=== PATIENT | male | born 1965 | race Caucasian/White ===

== ENCOUNTER 2018-06-02 17:34 | Emergency (ER) | payer BC ==
--- OUTSIDE RECORDS SUMMARY | 2018-06-02 17:42 | XMS REPORT ---
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 Payers Type Date Identification Numbers Payment Provider Subscriber Health Maintenance Policy Number: [id number] [facility] Bonnie Gutierrez Organization (HMO) Plan Group Number: [id number] [address] PayID: [id number] [place] [address] Problems Date Description Provider Status Onset: 10/22/2005 Pneumonia Lakisha Ponce MD Active Onset: 05/12/2006 Dysfunction of eustachian tube Lakisha Ponce MD Active Onset: 05/12/2006 Serosanguineous chronic otitis media Lakisha Ponce MD Active Onset: 08/24/2013 Open wound of finger without complication Lakisha Ponce MD Active Family History Date Family Member(s) Problem(s) Comments Father Hypercholesterolemia Father Stroke Father Seizures Father Heart Disease VALVULAR POSSIBLE HISTORY OF RHEUMATIC FEVER. Father Arthritis Father COPD Mother Diabetes, Adult ONSET AGE 42. diet controlled Mother Ulcers Mother Allergies Mother Rheumatoid Arthritis Mother Spinal Stenosis Number of Children 4 A&W. oldest has allergies. : (age First Sister due to Angiosarcoma 25 Years) Social History Type Date Description Comments Marital Status Diet portion control Occupation Tech Support For [employer] Cigarette Use Never Smoked Cigarettes ETOH Use Occasionally consumes alcohol 3beers/week Recreational Drug Use Denies Drug Use Currently Active Patient is currently sexually active Allergies, Adverse Reactions, Alerts Date Description Reaction Status Severity Comments 10/22/2005 NKDA active Medications Medication Date Status Form Strength Qnty SIG Indications Ordering Provider Neomycin/Polymyx 08/29/ Active Suspension 3.5-90869 1bott 4 drops H61.23 [place], in/Hydrocortison 2018 -1 two times dorothy Elder (Otic) a day for PA 2 weeks before visit Ventolin HFA 04/05/ Active Aerosol 108(90Bas 16gm 2 puffs J45.40 Andreas 2017 e) every 4 MD Gaudencio mcg/Act hours as needed Triamcinolone 04/05/ Active Ointment 0.5% 30gm apply to L20.89 Andreas Acetonide 2018 affected MD Gaudencio areas twice a day Montelukast 10/19/ Active Tablets 10mg 90tab 1 by mouth J30.1 Andreas Sodium 2018 s every day MD Gaudencio Hytone 10/19/ Active Cream 2.5% 60gm Apply Andreas2017 Sparingly MD Gaudencio bid prn Hydrocortisone 10/19/ Active Cream 2.5% 60gm apply Andreas, 2017 twice a MD Gaudencio day to affected areas Simvastatin 08/04/ Active Tablets 20mg 90tab 1 by mouth Andreas, 2007 s every day. MD Gaudencio Aspirin 06/21/ Active Chewtabs 81mg 1 PO qd 530.11 Andreas, 2005 MD Gaudencio Sulfamethoxazole 12/13/ Hx Tablets 800-160mg 20tab 1 by mouth L03.90 Andreas /Trimethoprim DS 2018 - s twice a MD Gaudencio 05/08/ 2018 Amoxicillin/Clav 01/11/ Hx Tablets 875-125mg 14tab 1 by mouth L73.9 montserrat Johnsanate 2016 - s twice a MD Gaudencio Potassium 2016 Cetirizine HCL 10/01/ Hx Tablets 10mg as Andreas 2015 - directed MD Gaudencio 2016 Terbinafine HCL 10/01/ Hx Tablets 250mg 84tab 1 by mouth Andreas 2015 - s every day MD Gaudencio 2016 Fluocinonide 08/22/ Hx Cream 0.05% 60gm apply to Andreas, 2013 - affected MD Gaudencio 10/01/ area 2015 sparingly bid prn Prednisone 12/13/ Hx Tablets 20mg QS 3 po qd x 493.00 Andreas 2013 - 3 days, 2 MD Gaudencio 08/22/ qd x 3 2013 days; 1 qd x 3 days then 1/2 tab qd x 3 days then stop Ventolin HFA 12/13/ Hx Aerosol 108(90Bas 1unit 2 puffs 493.00 Andreas, 2013 - e) s q4h prn MD Gaudencio 08/22/ mcg/Act 2013 Nasonex 09/23/ Hx Suspension 50mcg/Act 1unit 2 Sprays 477.0 Andreas 2013 - s Each Oc MD Gaudencio Initially 2013 Twice A Day Until SXS Relieved Then 2 Sprays qd. Cephalexin 08/24/ Hx Capsules 500mg 20cap 2 po bid 883.0 Kris 2012 - s MD Lakisha 2013 Prednisone 02/18/ Hx Tablets 5mg 36tab 8 tabs day 691.8 Andreas 2012 - s 1 then MD Gaudencio 08/22/ decrease 2013 by 1 tab per day until all are gone. Fluocinonide 04/30/ Hx Cream 0.05% 60gm apply to Andreas 2011 - affected MD Gaudencio 08/22/ area 2013 sparingly bid prn Nystatin 10/27/ Hx Cream [id number] 30gm apply bid 112.9 Andreas 2010 - t/GM to MD Gaudencio 01/12/ affected 2010 areas. Durable Medical 10/27/ Hx 1unit tennis 726.32 Andreas, Goods 2010 - s elbow MD Gaudencio 01/12/ velcro 2010 strap Dexamethasone 01/26/ Hx Solution 0.1% 5ml 1 gtt ou 372.30 Andreas, Sodium Phosphate 2009 - tid MD Gaudencio 2010 Nabumetone 11/23/ Hx Tablets 500mg 30tab 1 po bid 847.0 Andreas 2009 - s MD Gaudencio 2010 Skelaxin 11/23/ Hx Tablets 800mg 20tab one tab 847.0 Andreas 2009 - s qHS MD Gaudencio 2010 Cortisporin 11/16/ Hx Solution 3.5-36313 1bott 3 gtt RT 380.10 Andreas 2009 - -1 le ear tid x MD Gaudencio 7 days 2009 Pataday 07/21/ Hx Solution 0.2% 1unit 1 gt o.u. 372.05 Andreas 2008 - s qd MD Gaudencio 2009 Omeprazole 05/08/ Hx Capsules DR 40mg 30cap 1 po qd 530.11 Andreas 2008 - s MD Gaudencio 2009 Singulair 01/16/ Hx Tablets 10mg 90tab one po q 477.0 Andreas 2008 - s hs MD Gaudencio 2010 Azithromycin 09/29/ Hx Tablets 250mg 6tabs 2 PO qd X 466.0 Andreas 2008 - 1 Day Then MD Gaudencio PO qd X 2009 4 Days Augmentin 08/01/ Hx Tablets 875mg 20tab 1 PO bid 461.0 Andreas 2007 - s MD Gaudencio 2009 Nasonex 10/26/ Hx Suspension 50mcg/Act 1unit 2 Sprays 477.0 Andreas2007 - s Each Oc Ratliff MD 2009 Twice A Day Until SXS Relieved Then 2 Sprays qd. Simvastatin 11/24/ Hx Tablets 10mg 30tab 1 PO qd Andreas 2006 - s Due For MD Gaudencio 08/04/ 2007 Blood Work DEBRA. Hytone 06/21/ Cream 2.5% 60gm Apply Andreas 2005 - Sparingly MD Gaudencio 01/26/ bid prn 2009 Entex [place] 05/11/ Hx Capsules 400mg;30 1 po bid 382.00 Andreas 2005 - mg MD Gaudencio 2009 Amoxicillin 05/06/ Hx Tablets 875mg 20tab 1 PO bid 381.01 Andreas 2005 - s MD Gaudencio 2005 Entex [place] 05/06/ Hx Tablets 600mg;30 30tab 1 po bid 382.00 Andreas 2005 - mg jesika Ratliff MD 2005 Auralgan 05/06/ Hx Solution 5.4%;1.4 1BTL 2-3 ML 381.01 Andreas 2005 - % Into MD Gaudencio 2005 Ear Q4H prn Entex [place] 01/06/ Hx Tablets 600mg;30 45tab 1 PO bid 486 Andreas 2005 - mg s MD Gaudencio 2005 Ketek 10/22/ Hx Tablets 400mg 20tab 2 po qd 486 Andreas 2005 - s MD Gaudencio 2005 Albuterol 10/22/ Hx Aerosol 90mcg/Dos 1unit 2 puffs 486 Kris, Inhalation 2006 - e s q4h prn MD Lakisha 06/21/ cough, 2005 wheezing or SOB Levaquin 10/05/ Hx Tablets 500mg 10tab 1 po qd 486 Criselda Johns MD 2005 Robitussin A-c 10/05/ Hx Syrup 100mg;10m 120ml 1-2 tsp 486 Criselda Johns - g/5ML q4h prn MD Gaudencio 2005 Medications Administered in Office Medication Date Status Form Strength Qnty SIG Indications Ordering Provider PPD Administered Injection Aristeo Johns MD Immunizations CPT Code Status Date Vaccine Lot # [id number] Given 10/01/2015 Influenza Vac, 3 Yrs & Older, [id number] Quadrivalent, [place], [place] Use [address] Given 10/01/2015 Prevnar 13 Pneumococal Conjugate [id number] Vaccine Q2038 Given 06/27/2014 Fluzone Trivalent Immunization [id number] Q2038 Given 07/18/2013 Fluzone Trivalent Immunization [id number] Q2038 Given 06/24/2011 Fluzone Trivalent Immunization [id number] 42917 Given 01/26/2010 Influenza Virus Vaccine Pandemic [id number] Formulation - [id number] 79002 Given 01/26/2010 Administration Swine Flu Vaccine [id number] 20765 Given 12/28/2007 Tdap (Adacel) Ages 7 And Above Only [id number] 95204 Given 08/11/2006 Pneumococcal 23 Immunization Adult Or [id number] Immunosuppressed Patient 07004 Given 08/02/2006 Hepatitis B Vaccine Adult Dosage 70570 Given 08/02/2006 Hepatitis B Vaccine Adult Dosage [id number] 44285 Given 08/02/2006 Afluria Or Fluvirin Flu Vac Intramuscular 58495 Given 08/02/2006 Afluria Or Fluvirin Flu Vac Intramuscular 20462 Given 08/02/2006 Afluria Or Fluvirin Flu Vac [id number], EX 03/10/07 Intramuscular 64905 Given 06/21/2006 Hepatitis B Vaccine Adult Dosage [id number] 66090 Refused 10/03/2017 Afluria Or Fluvirin Flu Vac Intramuscular Vital Signs Date Vital Result Comment 05/09/2018 Body Temperature 97.7 F Weight 257.00 lb Heart Rate 72 /min BP Systolic 120 mmHg BP Diastolic 76 mmHg Height 74 inches 6'2" O2 % BldC Oximetry 99 % BMI (Body Mass Index) 33.0 kg/m2 04/05/2018 Weight 257.00 lb BP Systolic 138 mmHg BP Diastolic 80 mmHg Height 74 inches 6'2" BMI (Body Mass Index) 33.0 kg/m2 12/14/2017 Weight 256.00 lb BP Systolic 120 mmHg BP Diastolic 84 mmHg Height 74 inches 6'2" BMI (Body Mass Index) 32.9 kg/m2 12/13/2017 Body Temperature 98.8 F Weight 256.00 lb BP Systolic 118 mmHg BP Diastolic 76 mmHg Height 74 inches 6'2" BMI (Body Mass Index) 32.9 kg/m2 10/19/2017 Body Temperature 98.8 F Weight 254.00 lb Heart Rate 79 /min BP Systolic 122 mmHg BP Diastolic 84 mmHg Height 74 inches 6'2" O2 % BldC Oximetry 97 % BMI (Body Mass Index) 32.6 kg/m2 Urine Dipstick - Blood NEGATIVE Urine Dipstick - Protein NEGATIVE Urine Dipstick - Glucose NEGATIVE Urine Dipstick - Leukocytes NEGATIVE 01/12/2016 Body Temperature 99.0 F Weight 263.00 lb BP Systolic 158 mmHg BP Diastolic 90 mmHg Height 74 inches 6'2" BMI (Body Mass Index) 33.8 kg/m2 10/01/2015 Body Temperature 98.2 F Weight 266.00 lb Heart Rate 76 /min BP Systolic 130 mmHg BP Diastolic 84 mmHg Height 72 inches 6'0" BMI (Body Mass Index) 36.1 kg/m2 Urine Dipstick - Blood NEGATIVE Urine Dipstick - Protein NEGATIVE Urine Dipstick - Glucose NEGATIVE Urine Dipstick - Leukocytes NEGATIVE Left ear audiology results 20 db Right ear audiology results 20 db 08/22/2014 Body Temperature 98.1 F Weight 241.00 lb BP Systolic 112 mmHg BP Diastolic 72 mmHg 12/13/2013 Body Temperature 98.0 F Weight 241.00 lb BP Systolic 124 mmHg BP Diastolic 76 mmHg O2 Saturation Level with Exercise 97 % 09/23/2013 Body Temperature 98.4 F Weight 241.00 lb BP Systolic 122 mmHg BP Diastolic 78 mmHg Height 74.25 inches 6'2.25" BMI (Body Mass Index) 30.7 kg/m2 Urine Dipstick - Blood NEGATIVE Leuks Neg Urine Dipstick - Protein NEGATIVE Urine Dipstick - Glucose NEGATIVE 02/18/2013 Body Temperature 97.8 F Weight 256.00 lb BP Systolic 148 mmHg BP Diastolic 90 mmHg 04/30/2012 Body Temperature 97.3 F Weight 232.00 lb Heart Rate 65 /min BP Systolic 128 mmHg BP Diastolic 79 mmHg 06/24/2011 Weight 244.00 lb BP Systolic 122 mmHg BP Diastolic 76 mmHg 01/12/2011 Weight 237.00 lb Heart Rate 76 /min BP Systolic 120 mmHg BP Diastolic 78 mmHg Height 73.5 inches 6'1.50" BMI (Body Mass Index) 30.8 kg/m2 Urine Dipstick - Blood NEGATIVE Urine Dipstick - Protein NEGATIVE Urine Dipstick - Glucose NEGATIVE Right Visual Acuity Distance 20/30 Hearing WNL Bilat Left Visual Acuity Distance 20/20 10/27/2010 Weight 240.00 lb BP Systolic 124 mmHg BP Diastolic 78 mmHg 01/26/2010 Body Temperature 97.3 F Weight 228.00 lb Heart Rate 70 /min BP Systolic 124 mmHg BP Diastolic 68 mmHg Height 74.25 inches 6'2.25" BMI (Body Mass Index) 29.1 kg/m2 Urine Dipstick - Blood NEGATIVE Urine Dipstick - Protein NEGATIVE Urine Dipstick - Glucose NEGATIVE Right Visual Acuity Distance 20/30 Left Visual Acuity Distance 20/20 11/23/2009 Weight 240.00 lb BP Systolic 110 mmHg BP Diastolic 80 mmHg 11/16/2009 Body Temperature 100.0 F Weight 239.00 lb BP Systolic 140 mmHg BP Diastolic 80 mmHg 07/21/2009 Weight 232.00 lb BP Systolic 118 mmHg BP Diastolic 64 mmHg 06/26/2009 Body Temperature 98.7 F Weight 233.00 lb BP Systolic 120 mmHg BP Diastolic 72 mmHg 01/16/2009 Body Temperature 98.4 F Weight 234.00 lb BP Systolic 128 mmHg BP Diastolic 68 mmHg Height 74 inches 6'2" BMI (Body Mass Index) 30.0 kg/m2 09/29/2008 Body Temperature 97.8 F Weight 235.00 lb BP Systolic 120 mmHg BP Diastolic 70 mmHg Height 74 inches 6'2" BMI (Body Mass Index) 30.2 kg/m2 08/01/2008 Body Temperature 97.2 F Weight 225.00 lb Heart Rate 76 /min BP Systolic 128 mmHg BP Diastolic 78 mmHg Height 74 inches 6'2" BMI (Body Mass Index) 28.9 kg/m2 12/28/2007 Weight 226.00 lb Heart Rate 56 /min BP Systolic 130 mmHg BP Diastolic 86 mmHg Height 74 inches 6'2" BMI (Body Mass Index) 29.0 kg/m2 Urine Dipstick - Blood NEGATIVE Urine Dipstick - Protein NEGATIVE Urine Dipstick - Glucose NEGATIVE Right Visual Acuity Distance 20/20 Audio BWNL Left Visual Acuity Distance 20/20 10/26/2007 Weight 222.00 lb BP Systolic 124 mmHg BP Diastolic 87 mmHg Height 74 inches 6'2" BMI (Body Mass Index) 28.5 kg/m2 04/21/2007 Weight 216.00 lb Heart Rate 64 /min BP Systolic 134 mmHg BP Diastolic 86 mmHg Height 74 inches 6'2" BMI (Body Mass Index) 27.7 kg/m2 11/24/2006 Weight 220.00 lb Heart Rate 64 /min BP Systolic 132 mmHg BP Diastolic 67 mmHg Height 74 inches 6'2" BMI (Body Mass Index) 28.2 kg/m2 08/11/2006 Body Temperature 98.9 F Weight 225.00 lb Heart Rate 78 /min BP Systolic 126 mmHg BP Diastolic 79 mmHg Height 74 inches 6'2" BMI (Body Mass Index) 28.9 kg/m2 06/21/2006 Body Temperature 97.3 F Weight 225.00 lb Heart Rate 80 /min BP Systolic 127 mmHg BP Diastolic 76 mmHg Height 74 inches 6'2" BMI (Body Mass Index) 28.9 kg/m2 Urine Dipstick - Blood NEGATIVE Urine Dipstick - Protein NEGATIVE Urine Dipstick - Glucose NEGATIVE Right Visual Acuity Distance 20/20 Left Visual Acuity Distance 20/20 05/12/2006 Body Temperature 97.1 F Weight 223.00 lb Heart Rate 64 /min BP Systolic 140 mmHg BP Diastolic 80 mmHg Height 74 inches 6'2" BMI (Body Mass Index) 28.6 kg/m2 05/06/2006 Body Temperature 98.0 F Weight 224.00 lb BP Systolic 110 mmHg BP Diastolic 72 mmHg Height 74 inches 6'2" BMI (Body Mass Index) 28.8 kg/m2 01/06/2006 Weight 228.00 lb Heart Rate 59 /min BP Systolic 131 mmHg BP Diastolic 94 mmHg Height 74 inches 6'2" BMI (Body Mass Index) 29.3 kg/m2 10/26/2005 BP Systolic 124 mmHg BP Diastolic 84 mmHg 10/22/2005 Body Temperature 98.2 F Weight 224.00 lb Heart Rate 90 /min BP Systolic 123 mmHg BP Diastolic 72 mmHg 10/12/2005 Body Temperature 98.7 F Weight 220.00 lb BP Systolic 118 mmHg BP Diastolic 80 mmHg 10/05/2005 Body Temperature 99.1 F Weight 223.00 lb Heart Rate 72 /min BP Systolic 131 mmHg BP Diastolic 90 mmHg O2 % BldC Oximetry 97 % Results Test Date Test Result H/L Range Note Lipid 04/05/2018 Cholesterol 166 mg/dL 50-199 1 Triglycerides 105 mg/dL 30-200 1 HDL 47 mg/dL 29-71 1, 2 Chol/ HDL Ratio 3.5 ratio Low 4.0-6.7 1 VLDL 21 mg/dL 2-29 1 LDL (Calc) 98 mg/dL 20-99 1, 3 Laboratory test finding 04/05/2018 TSH 7.07 uIU/mL High 0.35-4.94 1 Laboratory test finding 10/19/2017 TSH 4.62 uIU/mL 0.35-4.94 4 PSA 0.490 ng/mL 0.000-4.000 5 Lipid 10/04/2017 Cholesterol 174 mg/dL 50-199 6 Triglycerides 131 mg/dL 30-200 6 HDL 44 mg/dL 29-71 6, 7 Chol/ HDL Ratio 4.0 ratio 4.0-6.7 6 VLDL 26 mg/dL 2-29 6 LDL (Calc) 104 mg/dL High 20-99 6, 8 Laboratory test finding 10/04/2017 TSH 6.75 uIU/mL High 0.35-4.94 6 Comprehensive Met Panel-FCMG 10/04/2017 Sodium 140 mmol/L 135-146 6, 9 Potassium 4.4 mmol/L 3.5-5.2 6 Chloride# 106 mmol/L 97-110 6, 10 Carbon Dioxide 27 mmol/L 24-34 6 Glucose 107 mg/dL High 70-105 6 BUN 18 mg/dL 6-26 6 Creatinine 1.2 mg/dL 0.5-1.4 6 Calcium 9.6 mg/dL 8.5-10.2 6 Total Protein 7.2 g/dL 6.0-8.0 6 Albumin 4.3 g/dL 3.6-4.9 6 Globulin 2.9 g/dL 2.0-3.5 6 A/G Ratio 1.5 Ratio 1.0-2.2 6 Total Bilirubin 0.6 mg/dL 0.1-1.3 6 Alkaline Phosphatase 100 U/L 24-140 6 Alt 60 U/L High 3-42 6 Ast 29 U/L 8-42 6 Lary Egfr >60 >60 6, 11 Non Lary Egfr >60 >60 6, 12 Anion Gap 7 mmol/L 7-16 6, 13 CBC With Auto Diff 10/04/2017 WBC 6.8 K/uL 4.1-11.0 6 RBC 4.96 M/uL 4.60-6.10 6 Hemoglobin 14.9 gm/dL 13.5-18.0 6 Hematocrit 44.4 % 41.0-53.0 6 MCV 89.5 fL 80.0-97.0 6 MCH 29.9 pg 27.0-32.0 6 MCHC 33.4 g/dL 32.0-36.0 6 RDW 14.0 % 11.5-14.5 6 PLT Count 221 K/ul 140-400 6 MPV 9.3 FL 7.1-10.7 6 Neutrophil 43.5 % 35.0-75.0 6 Lymphocyte 40.9 % 16.0-52.0 6 Monocyte 9.9 % 2.0-10.0 6 Eosinophil 5.0 % 0.0-5.0 6 Basophil 0.7 % 0.0-4.0 6 Abs Neutrophils 3.0 K/uL 2.1-8.0 6 Abs Lymphocytes 2.8 K/uL 0.8-5.5 6 Abs Monocytes 0.7 K/uL 0.1-1.0 6 Abs Eosinophils 0.3 K/uL 0.0-0.5 6 Abs Basophils 0.0 K/uL 0.0-0.3 6 Hemoglobin A1c 10/04/2017 Hemoglobin A1c 5.5 % 4.1-5.9 6 Estimated Average Glucose Calc 111 mg/dL 71-140 6 Lipid 12/09/2016 Cholesterol 150 mg/dL 50-199 Triglycerides 76 mg/dL 30-200 HDL 44 mg/dL - 14 Chol/ HDL Ratio 3.4 ratio Low 4.0-6.7 VLDL 15 mg/dL 2-29 LDL (Calc) 90 mg/dL 20-99 15 Lipid Treatment 05/24/2016 Cholesterol 147 mg/dL 50-199 16 Triglycerides 140 mg/dL 30-200 16 HDL 42 mg/dL 16, 17 Chol/ HDL Ratio 3.5 ratio Low 4.0-6.7 16 VLDL 28 mg/dL 2-29 16 LDL (Calc) 77 mg/dL 20-99 16, 18 Alt 42 U/L 3-42 16 Ast 30 U/L 8-42 16 Laboratory test finding 01/12/2016 TSH 3.38 uIU/mL 0.35-4.94 16 Hepatic Panel (LFT) 01/12/2016 Total Protein 7.2 g/dL 6.0-8.0 16 Albumin 4.2 g/dL 3.6-4.9 16 Total Bilirubin 0.5 mg/dL 0.1-1.3 16 Direct Bilirubin 0.1 mg/dL 0.0-0.4 16 Alkaline Phosphatase 75 U/L 24-140 16 Alt 31 U/L 3-42 16 Ast 21 U/L 8-42 16 CBC With Auto Diff 01/12/2016 WBC 7.4 K/uL 4.1-11.0 16 RBC 5.02 M/uL 4.60-6.10 16 Hemoglobin 14.7 gm/dL 13.5-18.0 16 Hematocrit 45.5 % 41.0-53.0 16 MCV 90.6 fL 80.0-97.0 16 MCH 29.3 pg 27.0-32.0 16 MCHC 32.3 g/dL 32.0-36.0 16 RDW 13.9 % 11.5-14.5 16 PLT Count 230 K/ul 140-400 16 Neutrophil 59.8 % 35.0-75.0 16 Lymphocyte 30.7 % 16.0-52.0 16 Monocyte 6.6 % 2.0-10.0 16 Eosinophil 2.2 % 0.0-5.0 16 Basophil 0.7 % 0.0-4.0 16 Abs Neutrophils 4.4 K/uL 2.1-8.0 16 Abs Lymphocytes 2.3 K/uL 0.8-5.5 16 Abs Monocytes 0.5 K/uL 0.1-1.0 16 Abs Eosinophils 0.2 K/uL 0.0-0.5 16 Abs Basophils 0.1 K/uL 0.0-0.3 16 Basic (BMP) 01/12/2016 Sodium 140 mmol/L 134-142 16 Potassium 4.9 mmol/L 3.5-5.2 16 Chloride 106 mmol/L 97-109 16 Carbon Dioxide 28 mmol/L 24-34 16 Glucose 94 mg/dL 70-105 16 BUN 12 mg/dL - 16 Creatinine 1.1 mg/dL 0.5-1.4 16 Calcium 9.3 mg/dL 8.5-10.2 16 Anion Gap 11 mmol/L 6-14 16 Non Lary Egfr >60 >60 16, 19 Lary Egfr >60 >60 16, 20 Hepatic Panel (LFT) 11/19/2015 Total Protein 7.5 g/dL 6.0-8.0 16 Albumin 4.3 g/dL 3.6-4.9 16 Total Bilirubin 0.7 mg/dL 0.1-1.3 16 Direct Bilirubin 0.1 mg/dL 0.0-0.4 16 Alkaline Phosphatase 79 U/L 24-140 16 Alt 43 U/L High 16 Ast 28 U/L 16 Lipid Treatment 08/31/2015 Cholesterol 141 mg/dL 50-199 16 Triglycerides 118 mg/dL 30-200 16 HDL 38 mg/dL 16, 21 Chol/ HDL Ratio 3.7 ratio Low 4.0-6.7 16 VLDL 24 mg/dL 16 LDL (Calc) 79 mg/dL 16, 22 Alt 39 U/L 16 Ast 28 U/L 16 Lipid Treatment 03/17/2015 Cholesterol 142 mg/dL 50-199 23 Triglycerides 97 mg/dL 30-200 23 HDL 40 mg/dL 23, 24 Chol/ HDL Ratio 3.6 ratio Low 4.0-6.7 23 VLDL 19 mg/dL 23 LDL (Calc) 83 mg/dL 23, 25 Alt 43 U/L High 23 Ast 26 U/L 23 Lipid 08/22/2014 Cholesterol 142 mg/dL 50-199 26 Triglycerides 130 mg/dL 30-200 26 HDL 36 mg/dL 26, 27 Chol/ HDL Ratio 3.9 ratio Low 4.0-6.7 26 VLDL 26 mg/dL 26 LDL (Calc) 80 mg/dL 99 26, 28 Lipid 02/25/2014 Cholesterol 145 mg/dL 50-199 29 Triglycerides 87 mg/dL 30-200 29 HDL 44 mg/dL 29, 30 Chol/ HDL Ratio 3.3 ratio Low 4.0-6.7 29 VLDL 17 mg/dL 2-29 29 LDL (Calc) 84 mg/dL 20-99 29, 31 CBC With Auto Diff 09/23/2013 WBC 8.8 K/uL 4.1-11.0 32 RBC 4.84 M/uL 4.60-6.10 32 Hemoglobin 14.8 gm/dL 13.5-18.0 32 Hematocrit 43.1 % 41.0-53.0 32 MCV 89.0 fL 80.0-97.0 32 MCH 30.5 pg 27.0-32.0 32 MCHC 34.2 g/dL 32.0-36.0 32 RDW 13.9 % 11.5-14.5 32 PLT Count 202 K/ul 140-400 32 Neutrophil 61.8 % 35.0-75.0 32 Lymphocyte 27.5 % 16.0-52.0 32 Monocyte 7.5 % 2.0-10.0 32 Eosinophil 2.6 % 0.0-5.0 32 Basophil 0.6 % 0.0-4.0 32 Abs Neutrophils 5.4 K/uL 2.1-8.0 32 Abs Lymphocytes 2.4 K/uL 0.8-5.5 32 Abmon 0.7 K/uL 0.1-1.0 32 Abs Eosinophils 0.2 K/uL 0.0-0.5 32 Abs Basophils 0.1 K/uL 0.0-0.3 32 Comprehensive Metabolic (CMP) 09/23/2013 Sodium 138 mmol/L 134-142 32 Potassium 4.2 mmol/L 3.5-5.2 32 Chloride 104 mmol/L 97-109 32 Carbon Dioxide 28 mmol/L 24-34 32 Glucose 86 mg/dL 70-105 32 BUN 12 mg/dL 6-26 32 Creatinine 1.1 mg/dL 0.5-1.4 32 Calcium 9.5 mg/dL 8.5-10.2 32 Total Protein 7.2 g/dL 6.0-8.0 32 Albumin 4.6 g/dL 3.6-4.9 32 Globulin 2.6 g/dL 2.0-3.5 32 A/G Ratio 1.8 Ratio 1.0-2.2 32 Total Bilirubin 0.6 mg/dL 0.1-1.3 32 Alkaline Phosphatase 87 U/L 24-140 32 Alt 43 U/L High 3-42 32 Ast 27 U/L 8-42 32 Anion Gap 10 mmol/L 6-14 32 Lary Egfr >60 >60 32, 33 Non Lary Egfr >60 >60 32, 34 Laboratory test finding 09/23/2013 TSH 3.26 uIU/mL 0.34-5.60 32 Lipid 07/18/2013 Cholesterol 162 mg/dL 50-199 35 Triglycerides 138 mg/dL 30-200 35 HDL 42 mg/dL 29-71 35, 36 Chol/ HDL Ratio 3.9 ratio Low 4.0-6.7 35 VLDL 28 mg/dL 2- 35 LDL (Calc) 92 mg/dL 20-99 35, 37 Lipid 01/09/2013 Cholesterol 155 mg/dL 50-199 38 Triglycerides 143 mg/dL 30-200 38 HDL 43 mg/dL -71 38, 39 Chol/ HDL Ratio 3.6 ratio Low 4.0-6.7 38 VLDL 29 mg/dL 2- 38 LDL (Calc) 83 mg/dL 20-129 38, 40 Lipid Treatment 06/26/2012 Cholesterol 156 mg/dL 50-199 38 Triglycerides 72 mg/dL 30-200 38 HDL 43 mg/dL -71 38, 41 Chol/ HDL Ratio 3.6 ratio Low 4.0-6.7 38 VLDL 14 mg/dL 2- 38 LDL (Calc) 99 mg/dL 20-129 38, 42 Alt 77 U/L High 3-42 38 Ast 41 U/L 8-42 38 Lipid Treatment 09/29/2011 Cholesterol 147 mg/dL 50-199 43 Triglycerides 122 mg/dL 10-150 43 HDL 44 mg/dL 23-92 43, 44 Chol/ HDL Ratio 3.3 ratio Low 4.0-6.7 43 VLDL 24 mg/dL 2-29 43 LDL (Calc) 79 mg/dL 20-129 43, 45 Alt 53 U/L High 7-52 43 Laboratory test finding 09/29/2011 Ast 35 U/L 13-39 43 Lipid Treatment 06/24/2011 Cholesterol 156 mg/dL 50-199 46 Triglycerides 120 mg/dL 10-150 46 HDL 38 mg/dL -71 46, 47 Chol/ HDL Ratio 4.1 ratio 4.0-6.7 46 VLDL 24 mg/dL 2- 46 LDL (Calc) 94 mg/dL 20-129 46, 48 Alt 46 U/L High 5-45 46 Ast 31 U/L 12-40 46 Laboratory test finding 06/24/2011 TSH 3.52 uIU/mL 0.34-5.60 46 Comprehensive Metabolic (CMP) 01/12/2011 Sodium 138 mmol/L 135-144 49 Potassium 4.2 mmol/L 3.6-5.2 49 Chloride 105 mmol/L 97-110 49 Carbon Dioxide 27 mmol/L 23-32 49 Glucose 97 mg/dL 70-105 49 BUN 11 mg/dL 6-22 49 Creatinine 1.1 mg/dL 0.5-1.3 49 Calcium 9.6 mg/dL 8.6-10.2 49 BUN/CR 10 ratio Low 12-20 49 Total Protein 6.8 g/dL 5.8-7.8 49 Albumin 4.5 g/dL 3.5-4.8 49 Globulin 2.3 g/dL 2.0-3.5 49 A/G Ratio 2.0 Ratio 1.0-2.2 49 Total Bilirubin 1.0 mg/dL 0.3-1.2 49 Alkaline Phosphatase 72 U/L 24-140 49 Alt 51 U/L High 5-45 49 Ast 31 U/L 12-40 49 Anion Gap 10 mmol/L 8-16 49 Non Lary Egfr >60 >60 49, 50 Lary Egfr >60 >60 49, 51 CBC With Auto Diff 01/12/2011 WBC 6.2 K/uL 4.1-11.0 49 RBC 4.83 M/uL 4.60-6.10 49 Hemoglobin 15.0 gm/dL 13.5-18.0 49 Hematocrit 43.3 % 41.0-53.0 49 MCV 89.8 fL 80.0-97.0 49 MCH 31.2 pg 27.0-32.0 49 MCHC 34.7 g/dL 32.0-36.0 49 RDW 13.2 % 11.5-14.5 49 PLT Count 204 K/ul 140-400 49 Neutrophil 51.6 % 35.0-75.0 49 Lymphocyte 37.1 % 16.0-52.0 49 Monocyte 7.4 % 2.0-10.0 49 Eosinophil 3.4 % 0.0-5.0 49 Basophil 0.5 % 0.0-4.0 49 Abs Neutrophils 3.2 K/uL 2.1-8.0 49 Abs Lymphocytes 2.3 K/uL 0.8-5.5 49 Abs Monocytes 0.5 K/uL 0.1-1.0 49 Abs Eosinophils 0.2 K/uL 0.0-0.5 49 Abs Basophils 0.0 K/uL 0.0-0.3 49 Lipid 01/12/2011 Cholesterol 175 mg/dL 50-199 49 Triglycerides 149 mg/dL 10-150 49 HDL 40 mg/dL 29-71 49, 52 Chol/ HDL Ratio 4.4 ratio 4.0-6.7 49 VLDL 30 mg/dL High 2-29 49 LDL (Calc) 105 mg/dL 20-129 49, 53 Laboratory test finding 01/12/2011 TSH 2.89 uIU/mL 0.34-5.60 49 Lipid Panel 09/07/2010 Cholesterol 176 mg/dL 50-199 54 Triglycerides 135 mg/dL 10-150 54 HDL 46 mg/dL 29-71 54, 55 Chol/HDL Ratio 3.8 Ratio Low 4.0-6.7 54, 56 VLDL 27 mg/dL 2-29 54 LDL (Calc) 103 mg/dL 20-129 54, 57 Lipid TX Panel 01/26/2010 Ast 34 U/L 12-40 58 Alt 49 U/L High 5-45 58 Cholesterol 151 mg/dL 50-199 58 Triglycerides 95 mg/dL 10-150 58 HDL 34 mg/dL 29-71 58, 59 LDL (Calc) 98 mg/dL 20-129 58, 60 Chol/HDL Ratio 4.4 Ratio 4.0-6.7 58, 61 VLDL 19 mg/dL 2-29 58 Laboratory test finding 01/26/2010 TSH 2.02 uIU/ml 0.34-5.60 58 CBC With Auto Diff 01/26/2010 WBC 5.8 K/ul 4.0-10.9 58 RBC 4.94 M/ul 4.70-6.10 58 Hemoglobin 15.1 GM/dl 13.5-18.0 58 Hematocrit 44.7 % 42.0-52.0 58 MCV 90.6 FL 80.0-97.0 58 MCH 30.5 pg 27.0-31.0 58 MCHC 33.7 g/dL 32.0-36.0 58 RDW 13.8 % 11.5-14.5 58 Platelet Count 179 K/ul 140-440 58 Neutrophils 49.9 % Low 50-70 58 Lymphocytes 37.8 % 20-44 58 Monocytes 7.2 % 2-9 58 Eosinophil 4.4 % High 0-4 58 Basophil 0.7 % 0-2 58 Absolute Neutrophils 2.9 K/ul 2.05-7.63 58 Absolute Lymphocytes 2.2 K/ul 0.8-4.8 58 Absolute Monocytes 0.4 K/ul 0.1-1.0 58 Absolute Eosinophils 0.3 K/ul 0.1-0.5 58 Absolute Basophils 0.0 K/ul 0.0-0.3 58 Hematology Comment (Comm2) N/A 58 CMP 01/26/2010 Sodium 143 mmol/L 135-144 58 Potassium 5.1 mmol/L 3.6-5.2 58, 62 Chloride 109 mmol/L 97-110 58 Carbon Dioxide 30 mmol/L 23-32 58 Glucose 91 mg/dL 70-105 58 BUN 10 mg/dL 6-22 58 Creatinine 1.1 mg/dL 0.5-1.3 58 BUN/CR 9 Ratio 58 Calcium 9.7 mg/dL 8.6-10.2 58 Total Protein 6.8 g/dL 5.8-7.8 58 Albumin 4.2 g/dL 3.5-4.8 58 Globulin 2.6 g/dL 2.0-3.5 58 A/G Ratio 1.6 Ratio 1.0-2.2 58 Total Bilirubin 1.1 mg/dL 0.3-1.2 58 Alkaline Phosphatase 67 U/L 24-140 58 Alt 49 U/L High 5-45 58 Ast 34 U/L 12-40 58 Anion Gap 9 mmol/L 8-16 58 GFR Calculation > 60 mL/min 60-175 58, 63 GFR For > 60 mL/min 60-175 58, 64 Lipid TX Panel 09/21/2009 Ast 48 U/L High 12-40 65 Alt 63 U/L High 5-45 65 Cholesterol 156 mg/dL 50-199 65 Triglycerides 68 mg/dL 10-150 65 HDL 42 mg/dL 29-71 65, 66 LDL (Calc) 100 mg/dL 20-129 65, 67 Chol/HDL Ratio 3.7 Ratio Low 4.0-6.7 65, 68 VLDL 14 mg/dL 2-29 65 Lipid TX Panel 03/18/2009 Ast 39 U/L 12-40 69 Alt 72 U/L High 5-45 69 Cholesterol 164 mg/dL 50-199 69 Triglycerides 108 mg/dL 10-150 69 HDL 42 mg/dL 29-71 69, 70 LDL (Calc) 100 mg/dL 20-129 69, 71 Chol/HDL Ratio 3.9 Ratio Low 4.0-6.7 69, 72 VLDL 22 mg/dL 2-29 69 Lipid TX Panel 09/02/2008 Ast 32 U/L 12-40 73, 74 Alt 44 U/L 4-45 73 Cholesterol 144 mg/dL 50-199 73 Triglycerides 94 mg/dL 10-150 73 HDL 39 mg/dL 29-71 73, 75 LDL (Calc) 86 mg/dL 20-129 73, 76 Chol/HDL Ratio 3.7 Ratio 73, 77 VLDL 19 mg/dL 73 Lipid TX Panel 08/01/2008 Ast 56 U/L High 12-40 78, 79 Alt 81 U/L High 45 78 Cholesterol 187 mg/dL 50-199 78 Triglycerides 102 mg/dL 10-150 78 HDL 46 mg/dL -71 78, 80 LDL (Calc) 121 mg/dL 20-129 78, 81 Chol/HDL Ratio 4.1 Ratio 78, 82 VLDL 20 mg/dL 78 CMP 12/28/2007 Sodium 137 mmol/L 135-144 83 Potassium 4.2 mmol/L 3.6-5.2 83 Chloride 104 mmol/L 97-110 83 Carbon Dioxide 28 mmol/L 23-33 83 Glucose 97 mg/dL 70-105 83 BUN 10 mg/dL 6-22 83 Creatinine 1.0 mg/dL 0.5-1.3 83 BUN/CR 10 Ratio Low 12.0-20.0 83 Calcium 9.5 mg/dL 8.6-10.2 83 Total Protein 6.7 g/dL 5.8-7.8 83 Albumin 4.1 g/dL 3.5-4.8 83 Globulin 2.6 g/dL 2.0-3.5 83 A/G Ratio 1.6 Ratio 1.0-2.2 83 Total Bilirubin 0.9 mg/dL 0.3-1.2 83 Alkaline Phosphatase 74 U/L 24-140 83 Alt 47 U/L High 4-45 83 Ast 32 U/L 12-40 83 Anion Gap 9 mmol/L 8-16 83 GFR Calculation > 60 mL/min 83, 84 GFR For > 60 mL/min 83, 85 CBC With Auto Diff 12/28/2007 WBC 5.8 K/ul 4.0-10.9 83 RBC 4.88 M/ul 4.70-6.10 83 Hemoglobin 14.9 GM/dl 13.5-18.0 83 Hematocrit 43.3 % 42.0-52.0 83 MCV 88.7 FL 80.0-97.0 83 MCH 30.6 pg 27.0-31.0 83 MCHC 34.5 g/dL 32.0-36.0 83 RDW 12.8 % 11.5-14.5 83 Platelet Count 259 K/ul 140-440 83 Neutrophils 46.5 % Low 50-70 83 Lymphocytes 40.2 % 20-44 83 Monocytes 8.9 % 2-9 83 Eosinophil 3.8 % 0-4 83 Basophil 0.6 % 0-2 83 Absolute Neutrophils 2.8 K/ul 2.05-7.63 83 Absolute Lymphocytes 2.3 K/ul 0.8-4.8 83 Absolute Monocytes 0.5 K/ul 0.1-1.0 83 Absolute Eosinophils 0.2 K/ul 0.1-0.5 83 Absolute Basophils 0.0 K/ul Low 0.1-0.3 83 Laboratory test finding 12/28/2007 TSH 2.89 uIU/ml 0.34-5.60 83 Lipid TX Panel 12/28/2007 Ast 32 U/L 12-40 83 Alt 47 U/L High 4-45 83 Cholesterol 165 mg/dL 50-199 83 Triglycerides 97 mg/dL 10-150 83 HDL 49 mg/dL 29-71 83 LDL (Calc) 97 mg/dL 20-129 83 Chol/HDL Ratio 3.4 Ratio 83 VLDL 19 mg/dL 83 Lipid TX Panel 09/25/2007 Ast 32 U/L 12-40 83 Alt 49 U/L High 4-45 83 Cholesterol 195 mg/dL 50-199 83 Triglycerides 106 mg/dL 10-150 83 HDL 44 mg/dL 29-71 83 LDL (Calc) 130 mg/dL High 20-129 83 Chol/HDL Ratio 4.4 Ratio 83 VLDL 21 mg/dL 83 Lipid TX Panel 02/06/2007 Ast 38 U/L 12-40 86 Alt 70 U/L High 4-45 86 Cholesterol 180 mg/dL 50-199 86 Triglycerides 71 mg/dL 10-150 86 HDL 48 mg/dL 29-71 86 LDL (Calc) 118 mg/dL 20-129 86 Chol/HDL Ratio 3.8 Ratio 86 VLDL 14 mg/dL 86 Lipid Panel 11/20/2006 Cholesterol 230 mg/dL High 50-199 87 Triglycerides 171 mg/dL High 10-150 87 HDL 44 mg/dL 29-71 87 Chol/HDL Ratio 5.2 Ratio 87 VLDL 34 mg/dL 87 LDL (Calc) 152 mg/dL High 20-129 87 Lipid Panel 08/02/2006 Cholesterol 235 mg/dL High 50-199 87 Triglycerides 103 mg/dL 10-150 87 HDL 44 mg/dL 29-71 87 Chol/HDL Ratio 5.3 Ratio 87 VLDL 21 mg/dL 87 LDL (Calc) 170 mg/dL High 20-129 87 CBC With Auto Diff 06/21/2006 WBC 5.6 K/ul 4.0-10.9 87 RBC 4.96 M/ul 4.70-6.10 87 Hemoglobin 14.9 GM/dl 13.5-18.0 87 Hematocrit 44.4 % 42.0-52.0 87 MCV 89.5 FL 80.0-97.0 87 MCH 30.1 pg 27.0-31.0 87 MCHC 33.6 g/dL 32.0-36.0 87 RDW 12.8 % 11.5-14.5 87 Platelet Count 241 K/ul 140-440 87 Neutrophils 48.1 % Low 50-70 87 Lymphocytes 36.3 % 20-44 87 Monocytes 10.4 % High 2-9 87 Eosinophil 4.2 % High 0-4 87 Basophil 1.0 % 0-2 87 Absolute Neutrophils 2.7 K/ul 2.05-7.63 87 Absolute Lymphocytes 2.0 K/ul 0.8-4.8 87 Absolute Monocytes 0.6 K/ul 0.1-1.0 87 Absolute Eosinophils 0.2 K/ul 0.1-0.5 87 Absolute Basophils 0.1 K/ul 0.1-0.3 87 CMP 06/21/2006 Sodium 141 mmol/L 135-144 87 Potassium 5.0 mmol/L 3.6-5.2 87 Chloride 106 mmol/L 97-110 87 Carbon Dioxide 29 mmol/L 23-33 87 Glucose 65 mg/dL Low 70-105 87 BUN 11 mg/dL 6-22 87 Creatinine 1.2 mg/dL 0.5-1.3 87 BUN/CR 9 Ratio Low 12.0-20.0 87 Calcium 9.8 mg/dL 8.6-10.2 87 Total Protein 6.8 g/dL 5.8-7.8 87 Albumin 4.1 g/dL 3.5-4.8 87 Globulin 2.7 g/dL 2.0-3.5 87 A/G Ratio 1.5 Ratio 1.0-2.2 87 Total Bilirubin 0.8 mg/dL 0.3-1.2 87 Alkaline Phosphatase 78 U/L 24-140 87 Alt 54 U/L High 4-45 87 Ast 36 U/L 12-40 87 Anion Gap 11 mmol/L 8-16 87 GFR White Male 71 87 GFR White Female 52 87 GFR Black Male 86 87 GFR Black Female 63 87 GFR Guidelines 0 87, 88 Laboratory test finding 06/21/2006 TSH 3.75 uIU/ml 0.50-6.00 87 1 1 SST Specimen received unspun 2 Per NCEP ATP III Guidelines: Results lower than 40 mg/dL are suggestive of increased risk for coronary artery disease. Results > or=to 60 mg/dL are considered a negative risk factor. 3 Per NCEP ATP III Guidelines: Normal Population <130 Patients with medical conditions: CHD/DM Optimal: <100 Borderline high: 130-159 High: 160-189 Very high: >189 4 Specimen received unspun 5 Beginning 11/06/06 PSA values assayed at [facility] uses chemiluminescence methodology manufactured by [employer] for use on the DXI analyzer. Values obtained with different assay methods or kits can not be used interchangeably. Serum PSA measurement is not an absolute test for malignancy. The PSA value should be used in conjunction with information available from clinical evaluation and other diagnostic procedures. 6 Fastin hours 7 Per NCEP ATP III Guidelines: Results lower than 40 mg/dL are suggestive of increased risk for coronary artery disease. Results > or=to 60 mg/dL are considered a negative risk factor. 8 Per NCEP ATP III Guidelines: Normal Population <130 Patients with medical conditions: CHD/DM Optimal: <100 Borderline high: 130-159 High: 160-189 Very high: >189 9 Updated reference range on new analyzer 10 Updated reference range on new analyzer 11 Concerning GFR Guidelines for Americans: Normal function or mild renal disease, if clinically at risk: >/=60 mL/min Moderately decreased: 30-59 Severely decreased: 15-29 Renal failure: <15 12 Concerning GFR Guidelines: Normal function or mild renal disease, if clinically at risk: >/=60 mL/min Moderately decreased: 30-59 Severely decreased: 15-29 Renal failure: <15 Glomerular Filtration Rate (GFR) is estimated based on the MDRD equation, which assumes a steady state for creatinine as recommended by the National Kidney Disease Education Program in conjunction with the National Institutes of Health and the National Kidney Foundation. Clinical conditions in which it may be necessary to measure GFR by using clearance methods include extremes of age and body size, severe malnutrition or obesity, diseases of skeletal muscle, paraplegia or quadriplegia, vegetarian diet, rapidly changing kidney function, and calculation of the dose of potentially toxic drugs that are excreted by the kidneys. 13 Updated reference range on new analyzer 14 Per NCEP ATP III Guidelines: Results lower than 40 mg/dL are suggestive of increased risk for coronary artery disease. Results > or=to 60 mg/dL are considered a negative risk factor. 15 Per NCEP ATP III Guidelines: Normal Population <130 Patients with medical conditions: CHD/DM Optimal: <100 Borderline high: 130-159 High: 160-189 Very high: >189 16 This sample is drawn by:lizz 17 Per NCEP ATP III Guidelines: Results lower than 40 mg/dL are suggestive of increased risk for coronary artery disease. Results > or=to 60 mg/dL are considered a negative risk factor. 18 Per NCEP ATP III Guidelines: Normal Population <130 Patients with medical conditions: CHD/DM Optimal: <100 Borderline high: 130-159 High: 160-189 Very high: >189 19 Concerning GFR Guidelines: Normal function or mild renal disease, if clinically at risk: >/=60 mL/min Moderately decreased: 30-59 Severely decreased: 15-29 Renal failure: <15 Glomerular Filtration Rate (GFR) is estimated based on the MDRD equation, which assumes a steady state for creatinine as recommended by the National Kidney Disease Education Program in conjunction with the National Institutes of Health and the National Kidney Foundation. Clinical conditions in which it may be necessary to measure GFR by using clearance methods include extremes of age and body size, severe malnutrition or obesity, diseases of skeletal muscle, paraplegia or quadriplegia, vegetarian diet, rapidly changing kidney function, and calculation of the dose of potentially toxic drugs that are excreted by the kidneys. 20 Concerning GFR Guidelines for Americans: Normal function or mild renal disease, if clinically at risk: >/=60 mL/min Moderately decreased: 30-59 Severely decreased: 15-29 Renal failure: <15 21 Per NCEP ATP III Guidelines: Results lower than 40 mg/dL are suggestive of increased risk for coronary artery disease. Results > or=to 60 mg/dL are considered a negative risk factor. 22 Per NCEP ATP III Guidelines: Normal Population <130 Patients with medical conditions: CHD/DM Optimal: <100 Borderline high: 130-159 High: 160-189 Very high: >189 23 This sample is drawn by:AK 24 Per NCEP ATP III Guidelines: Results lower than 40 mg/dL are suggestive of increased risk for coronary artery disease. Results > or=to 60 mg/dL are considered a negative risk factor. 25 Per NCEP ATP III Guidelines: Normal Population <130 Patients with medical conditions: CHD/DM Optimal: <100 Borderline high: 130-159 High: 160-189 Very high: >189 26 This sample is drawn by:AK Fastin hours 27 Per NCEP ATP III Guidelines: Results lower than 40 mg/dL are suggestive of increased risk for coronary artery disease. Results > or=to 60 mg/dL are considered a negative risk factor. 28 Per NCEP ATP III Guidelines: Normal Population <130 Patients with medical conditions: CHD/DM Optimal: <100 Borderline high: 130-159 High: 160-189 Very high: >189 29 This sample is drawn by:ak 30 Per NCEP ATP III Guidelines: Results lower than 40 mg/dL are suggestive of increased risk for coronary artery disease. Results > or=to 60 mg/dL are considered a negative risk factor. 31 Per NCEP ATP III Guidelines: Normal Population <130 Patients with medical conditions: CHD/DM Optimal: <100 Borderline high: 130-159 High: 160-189 Very high: >189 32 This sample is drawn by:Colin 33 Concerning GFR Guidelines for Americans: Normal function or mild renal disease, if clinically at risk: >/=60 mL/min Moderately decreased: 30-59 Severely decreased: 15-29 Renal failure: <15 34 Concerning GFR Guidelines: Normal function or mild renal disease, if clinically at risk: >/=60 mL/min Moderately decreased: 30-59 Severely decreased: 15-29 Renal failure: <15 Glomerular Filtration Rate (GFR) is estimated based on the MDRD equation, which assumes a steady state for creatinine as recommended by the National Kidney Disease Education Program in conjunction with the National Institutes of Health and the National Kidney Foundation. Clinical conditions in which it may be necessary to measure GFR by using clearance methods include extremes of age and body size, severe malnutrition or obesity, diseases of skeletal muscle, paraplegia or quadriplegia, vegetarian diet, rapidly changing kidney function, and calculation of the dose of potentially toxic drugs that are excreted by the kidneys. 35 This sample is drawn by:nv 36 Per NCEP ATP III Guidelines: Results lower than 40 mg/dL are suggestive of increased risk for coronary artery disease. Results > or=to 60 mg/dL are considered a negative risk factor. 37 Per NCEP ATP III Guidelines: Normal Population <130 Patients with medical conditions: CHD/DM Optimal: <100 Borderline high: 130-159 High: 160-189 Very high: >189 38 This sample is drawn by:DHN 39 Per NCEP ATP III Guidelines: Results lower than 40 mg/dL are suggestive of increased risk for coronary artery disease. Results > or=to 60 mg/dL are considered a negative risk factor. 40 Per NCEP ATP III Guidelines: Optimal: <100 Near optimal: 100-129 Borderline high: 130-159 High: 160-189 Very high: >189 41 Per NCEP ATP III Guidelines: Results lower than 40 mg/dL are suggestive of increased risk for coronary artery disease. Results > or=to 60 mg/dL are considered a negative risk factor. 42 Per NCEP ATP III Guidelines: Optimal: <100 Near optimal: 100-129 Borderline high: 130-159 High: 160-189 Very high: >189 43 This sample is drawn by:TS. 44 Per NCEP ATP III Guidelines: Results lower than 40 mg/dL are suggestive of increased risk for coronary artery disease. Results > or=to 60 mg/dL are considered a negative risk factor. 45 Per NCEP ATP III Guidelines: Optimal: <100 Near optimal: 100-129 Borderline high: 130-159 High: 160-189 Very high: >189 46 TSH ADDED PER TRIAGE [id number] This sample is drawn by:ss 47 Per NCEP ATP III Guidelines: Results lower than 40 mg/dL are suggestive of increased risk for coronary artery disease. Results > or=to 60 mg/dL are considered a negative risk factor. 48 Per NCEP ATP III Guidelines: Optimal: <100 Near optimal: 100-129 Borderline high: 130-159 High: 160-189 Very high: >189 49 This sample is drawn by:WW 50 Concerning GFR Guidelines: Normal function or mild renal disease, if clinically at risk: >/=60 mL/min Moderately decreased: 30-59 Severely decreased: 15-29 Renal failure: <15 Glomerular Filtration Rate (GFR) is estimated based on the MDRD equation, which assumes a steady state for creatinine as recommended by the National Kidney Disease Education Program in conjunction with the National Institutes of Health and the National Kidney Foundation. Clinical conditions in which it may be necessary to measure GFR by using clearance methods include extremes of age and body size, severe malnutrition or obesity, diseases of skeletal muscle, paraplegia or quadriplegia, vegetarian diet, rapidly changing kidney function, and calculation of the dose of potentially toxic drugs that are excreted by the kidneys. 51 Concerning GFR Guidelines for Americans: Normal function or mild renal disease, if clinically at risk: >/=60 mL/min Moderately decreased: 30-59 Severely decreased: 15-29 Renal failure: <15 52 Per NCEP ATP III Guidelines: Results lower than 40 mg/dL are suggestive of increased risk for coronary artery disease. Results > or=to 60 mg/dL are considered a negative risk factor. 53 Per NCEP ATP III Guidelines: Optimal: <100 Near optimal: 100-129 Borderline high: 130-159 High: 160-189 Very high: >189 54 FASTING 12 HOUR This sample is drawn by:TS. 55 PER NCEP ATP III GUIDELINES: RESULTS LOWER THAN 40 MG/DL ARE SUGGESTIVE OF INCREASED RISK FOR CORONARY ARTERY DISEASE. RESULTS > OR=TO 60 MG/DL ARE CONSIDERED A NEGATIVE RISK FACTOR. 56 INTERPRETATION OF CHOL-HDL RATIO CHD RISK FEMALE MALE VERY HIGH >8.3 >14.3 HIGH 5.6 - 8.3 6.7 - 14.3 AVERAGE 3.7 - 5.6 4.0 - 6.7 BELOW AVERAGE 2.5 - 3.7 2.7 - 4.0 PROTECTED <2.5 <2.7 57 PER NCEP ATP III GUIDELINES: OPTIMAL: <100 NEAR OPTIMAL: 100 - 129 BORDERLINE HIGH: 130 - 159 HIGH: 160 - 189 VERY HIGH: >189 58 FASTING 12 HOUR This sample is drawn by:ts. 59 PER NCEP ATP III GUIDELINES: RESULTS LOWER THAN 40 MG/DL ARE SUGGESTIVE OF INCREASED RISK FOR CORONARY ARTERY DISEASE. RESULTS > OR=TO 60 MG/DL ARE CONSIDERED A NEGATIVE RISK FACTOR. 60 PER NCEP ATP III GUIDELINES: OPTIMAL: <100 NEAR OPTIMAL: 100 - 129 BORDERLINE HIGH: 130 - 159 HIGH: 160 - 189 VERY HIGH: >189 61 INTERPRETATION OF CHOL-HDL RATIO CHD RISK FEMALE MALE VERY HIGH >8.3 >14.3 HIGH 5.6 - 8.3 6.7 - 14.3 AVERAGE 3.7 - 5.6 4.0 - 6.7 BELOW AVERAGE 2.5 - 3.7 2.7 - 4.0 PROTECTED <2.5 <2.7 62 SLIGHT HEMOLYSIS The difference between the most recent result of 4.2 and the current result of 5.1 exceeds the absolute delta value of 0.5 as defined for this test. 63 Concerning GFR GUIDELINES: Normal Function or Mild Renal Disease, if clinically at risk: >/=60mL/min Moderately decreased: 30-59 Severely decreased: 15-29 Renal Failure: <15 Glomerular Filtration Rate (GFR) is estimated based on the MDRD equation, which assumes a steady state for creatinine as recommended by the National Kidney Disease Education Program in conjunction with the National Institutes of Health and the National Kidney Foundation. Clinical conditions in which it may be necessary to measure GFR by using clearance methods include extremes of age and body size, severe malnutrition or obesity, diseases of skeletal muscle, paraplegia or quadriplegia, vegetarian diet, rapidly changing kidney function, and calculation of the dose of potentially toxic drugs that are excreted by the kidneys. 64 Concerning GFR GUIDELINES: Normal Function or Mild Renal Disease, if clinically at risk: >/=60mL/min Moderately decreased: 30-59 Severely decreased: 15-29 Renal Failure: <15 65 FASTING 12 HOUR This sample is drawn by:SS 66 PER NCEP ATP III GUIDELINES: RESULTS LOWER THAN 40 MG/DL ARE SUGGESTIVE OF INCREASED RISK FOR CORONARY ARTERY DISEASE. RESULTS > OR=TO 60 MG/DL ARE CONSIDERED A NEGATIVE RISK FACTOR. 67 PER NCEP ATP III GUIDELINES: OPTIMAL: <100 NEAR OPTIMAL: 100 - 129 BORDERLINE HIGH: 130 - 159 HIGH: 160 - 189 VERY HIGH: >189 68 INTERPRETATION OF CHOL-HDL RATIO CHD RISK FEMALE MALE VERY HIGH >8.3 >14.3 HIGH 5.6 - 8.3 6.7 - 14.3 AVERAGE 3.7 - 5.6 4.0 - 6.7 BELOW AVERAGE 2.5 - 3.7 2.7 - 4.0 PROTECTED <2.5 <2.7 69 FASTING This sample is drawn by:TS 70 PER NCEP ATP III GUIDELINES: RESULTS LOWER THAN 40 MG/DL ARE SUGGESTIVE OF INCREASED RISK FOR CORONARY ARTERY DISEASE. RESULTS > OR=TO 60 MG/DL ARE CONSIDERED A NEGATIVE RISK FACTOR. 71 PER NCEP ATP III GUIDELINES: OPTIMAL: <100 NEAR OPTIMAL: 100 - 129 BORDERLINE HIGH: 130 - 159 HIGH: 160 - 189 VERY HIGH: >189 72 INTERPRETATION OF CHOL-HDL RATIO CHD RISK FEMALE MALE VERY HIGH >8.3 >14.3 HIGH 5.6 - 8.3 6.7 - 14.3 AVERAGE 3.7 - 5.6 4.0 - 6.7 BELOW AVERAGE 2.5 - 3.7 2.7 - 4.0 PROTECTED <2.5 <2.7 73 FASTING This sample is drawn by:LP 74 The difference between the most recent result of 56 and the current result of 32 exceeds the absolute delta value of 15 as defined for this test. 75 PER NCEP ATP III GUIDELINES: RESULTS LOWER THAN 40 MG/DL ARE SUGGESTIVE OF INCREASED RISK FOR CORONARY ARTERY DISEASE. RESULTS > OR=TO 60 MG/DL ARE CONSIDERED A NEGATIVE RISK FACTOR. 76 PER NCEP ATP III GUIDELINES: OPTIMAL: <100 NEAR OPTIMAL: 100 - 129 BORDERLINE HIGH: 130 - 159 HIGH: 160 - 189 VERY HIGH: >189 77 INTERPRETATION OF CHOL-HDL RATIO CHD RISK FEMALE MALE VERY HIGH >8.3 >14.3 HIGH 5.6 - 8.3 6.7 - 14.3 AVERAGE 3.7 - 5.6 4.0 - 6.7 BELOW AVERAGE 2.5 - 3.7 2.7 - 4.0 PROTECTED <2.5 <2.7 78 FASTING This sample is drawn by:TS 79 The difference between the most recent result of 32 and the current result of 56 exceeds the absolute delta value of 15 as defined for this test. 80 PER NCEP ATP III GUIDELINES: RESULTS LOWER THAN 40 MG/DL ARE SUGGESTIVE OF INCREASED RISK FOR CORONARY ARTERY DISEASE. RESULTS > OR=TO 60 MG/DL ARE CONSIDERED A NEGATIVE RISK FACTOR. 81 PER NCEP ATP III GUIDELINES: OPTIMAL: <100 NEAR OPTIMAL: 100 - 129 BORDERLINE HIGH: 130 - 159 HIGH: 160 - 189 VERY HIGH: >189 82 INTERPRETATION OF CHOL-HDL RATIO CHD RISK FEMALE MALE VERY HIGH >8.3 >14.3 HIGH 5.6 - 8.3 6.7 - 14.3 AVERAGE 3.7 - 5.6 4.0 - 6.7 BELOW AVERAGE 2.5 - 3.7 2.7 - 4.0 PROTECTED <2.5 <2.7 83 FASTING 84 Concerning GFR GUIDELINES: Normal Function or Mild Renal Disease, if clinically at risk: >/=60mL/min Moderately decreased: 30-59 Severely decreased: 15-29 Renal Failure: <15 Glomerular Filtration Rate (GFR) is estimated based on the MDRD equation, which assumes a steady state for creatinine as recommended by the National Kidney Disease Education Program in conjunction with the National Institutes of Health and the National Kidney Foundation. Clinical conditions in which it may be necessary to measure GFR by using clearance methods include extremes of age and body size, severe malnutrition or obesity, diseases of skeletal muscle, paraplegia or quadriplegia, vegetarian diet, rapidly changing kidney function, and calculation of the dose of potentially toxic drugs that are excreted by the kidneys. 85 Concerning GFR GUIDELINES: Normal Function or Mild Renal Disease, if clinically at risk: >/=60mL/min Moderately decreased: 30-59 Severely decreased: 15-29 Renal Failure: <15 86 FASTING JULI 1145 87 FASTING 88 Normal Function or Mild Renal Disease, if clinically at risk: >/=60 mL/min Moderately decreased: 30-59 Severely decreased: 15-29 Renal Failure: <15 Glomerular Filtration Rate (GFR) is estimated based on the MDRD equation, which assumes a steady state for creatinine as recommended by the National Kidney Disease Education Program in conjunction with the National Institutes of Health and the National Kidney Foundation. Clinical conditions in which it may be necessary to measure GFR by using clearance methods include extremes of age and body size, severe malnutrition or obesity, diseases of skeletal muscle, paraplegia or quadriplegia, vegetarian diet, rapidly changing kidney function, and calculation of the dose of potentially toxic drugs that are excreted by the kidneys. Procedures Date CPT Code Description Status 05/09/2018 83396 Remove Impacted Cerumen Requiring Instrumentation Completed 04/05/2018 70706 Spirometry /PFT With And Without Bronchodialator Completed (Bronchospasm) 02/09/2018 Colonoscopy Completed 10/19/2017 46256 Electrocardiogram Complete Completed 10/01/2015 75496 Electrocardiogram Complete Completed 10/01/2015 51246 Screening Hearing Test Completed 12/13/2013 36957 PFT With Bronchodilator Completed 12/13/2013 91659 Spirometry /PFT With And Without Bronchodialator Completed (Bronchospasm) 09/23/2013 17583 Electrocardiogram Complete Completed 09/23/2013 18567 Screening Hearing Test Completed 08/24/2013 90284 Repair Superfic Wound < 2.6CM Completed Scalp/Neck/Axil/Genit/Trunk/Extr 01/12/2011 93072 Visual Screening Test Completed 01/12/2011 01135 Electrocardiogram Complete Completed 01/12/2011 69754 Screening Hearing Test Completed 01/26/2010 45785 Visual Screening Test Completed 01/26/2010 89818 Electrocardiogram Complete Completed 01/26/2010 44824 Screening Hearing Test Completed 12/28/2007 59193 Electrocardiogram Complete Completed 12/28/2007 83199 Pure Tone Audiometry, Air Completed 12/28/2007 20422 Screening Hearing Test Completed 08/02/2006 66692 Deleted Code Use 47291 Completed 06/21/2006 54237 Electrocardiogram Complete Completed 06/21/2006 02787 Pure Tone Audiometry, Air Completed 06/21/2006 43791 Screening Hearing Test Completed 10/05/2005 33987 Measure Blood Oxygen Level Single Determination Completed 10/05/2005 12443 Airway Inhalation Treatment Completed Encounters Type Date Location Provider CPT E/M Dx Office Visit 04/05/2018 9:45[place] [address] Z68.33 E78.00 E03.9 R06.02 J45.40 L20.89 Office Visit 12/13/2017 11:45[place] [address] L03.90 Z68.32 Office Visit 10/19/2017 1:30[place] [address] Z00.00 E03.9 E78.00 J30.1 Z12.5 Office Visit 01/12/2016 2:00[place] [address] L73.9 R63.5 R53.83 Office Visit 10/01/2015 1:45[place] [address] Z00.00 Z23 Z00.00 J82 E66.9 B35.9 J30.89 L20.9 Office Visit 08/22/2014 9:15[place] [address] 272.0 691.8 Office Visit 12/13/2013 2:30[place] [address] 786.09 493.00 786.05 Office Visit 09/23/2013 10:30[place] [address] 272.0 V70.0 V77.0 Office Visit 02/18/2013 12:30[place] [address] 691.8 Office Visit 04/30/2012 3:45[place] [address] 691.8 272.0 Office Visit 06/24/2011 9:00[place] [address] V04.81 272.0 785.1 785.0 Office Visit 01/12/2011 9:15[place] [address] V70.0 272.0 V77.0 278.00 550.90 518.3 Office Visit 10/27/2010 9:00[place] [address] 112.9 726.32 Office Visit 01/26/2010 9:30[place] [address] 272.0 518.3 530.11 477.0 V72.19 V77.0 V70.0 847.0 372.30 V85.25 V04.81 Office Visit 11/23/2009 9:00[place] [address] 847.0 Office Visit 11/16/2009 3:15p [place] [address] 380.10 Office Visit 07/21/2009 3:30[place] [address] 372.05 Office Visit 06/26/2009 3:00[place] [address] 477.0 461.0 Office Visit 01/16/2009 12:15[place] [address] 477.0 518.3 327.23 530.11 Office Visit 09/29/2008 12:30[place] [address] 466.0 272.0 Office Visit 08/01/2008 11:30[place] [address] 272.0 461.0 Office Visit 12/28/2007 9:30[place] [address] V70.0 272.0 477.0 518.3 327.23 575.8 780.79 V06.1 Office Visit 10/26/2007 2:15[place] [address] 477.0 272.0 Office Visit 04/21/2007 12:00[place] [address] 272.0 518.3 691.8 Office Visit 11/24/2006 2:15[place] [address] 272.0 789.9 518.3 Office Visit 08/11/2006 11:30[place] [address] 847.1 465.9 272.0 518.3 530.11 V03.82 Office Visit 06/21/2006 9:15[place] [address] V70.0 V75.9 V77.0 530.11 691.8 550.90 V05.3 V74.1 Office Visit 05/12/2006 9:15[place] [address] 381.81 381.19 Office Visit 05/06/2006 9:00[place] [address] 381.01 382.00 Office Visit 01/06/2006 3:00p [place] [address] 486 381.01 550.90 Office Visit 10/26/2005 9:30[place] [address] 486 Office Visit 10/22/2005 9:30[place] [address] 486 Office Visit 10/12/2005 10:30[place] [address] 486 Office Visit 10/05/2005 10:30[place] [address] 486 Plan of Care Future Appointment(s):06/06/2018 10:20 am - Jael Sotelo PA at [facility], MD05/09/2018 - Jael Sotelo PAJ30.9 Allergic rhinitis, unspecifiedComments:Patient with years of post nasal drip, morning cough, congestion. Believes he may have sensitivity to cats and dogs. We will evaluate with in-vitro allergy testing to inhalants. We discussed treatment options for allergies including avoidance, medication management and immunotherapy. He will continue singulair and switch zyrtec to alan or xyzal. follow-up in 3-4 weeks.Follow up:3-4 week in vitro testing and earsH61.23 Impacted cerumen, bilateralNew Medication:Neomycin/Polymyxin/ Hydrocortisone (Otic) [id number]:hard cerumen abutting the TMs bilaterally. Attempted removal today which was unsuccessful. We willtreat with cortisporin drops and follow-up with the patient.J45.20 Mild intermittent asthma, uncomplicatedComments:currently following up with PCP.
[2018-06-02] MEDS ORDERED: Levalbuterol 1.25MG/0.5ML NEB INH ONE (18:07)
[2018-06-02] MEDS ORDERED: Acetaminophen TAB* 325 MG PO ONE (18:07)
[2018-06-02] MEDS ORDERED: predniSONE TAB* 20 MG PO ONE (18:14)
[2018-06-02] MEDS ORDERED: Albuterol/Ipratropium NEB.SOL* Albuterol 2.5 MG/Ipratropium 0.5 MG 3 ML INH ONE (18:14)
[2018-06-02] MEDS ORDERED: cefTRIAXone VIAL(*) 1,000 MG VIAL IM ONE ×2 (18:39→18:48)
[2018-06-02] MEDS ORDERED: cefTRIAXone VIAL(*) 250 MG VIAL IM ONE (18:42)
--- NOTE | 2018-06-02 18:49 | RAD ---
INDICATION: Cough and congestion COMPARISON: Chest x-ray January 06, 2006 TECHNIQUE: PA and lateral views of the chest were obtained. FINDINGS: The heart and mediastinum are normal in size and contour. There are reticulonodular densities overlying bilateral lower lungs more severely affecting the left lower lobe than the right. There is a mild amount of left costal angle blunting. Visualized bones are normal for the patient's age. There is no radiographic evidence of free air beneath the diaphragm IMPRESSION: RETICULONODULAR DENSITIES OVERLYING THE BILATERAL LOWER LUNGS, MORE SEVERELY AFFECTING THE RIGHT, COULD BE DUE TO MULTIFOCAL PNEUMONIA IN ACUTE SETTING OR EARLY INTERSTITIAL LUNG DISEASE AND A MORE CHRONIC SETTING.
--- NOTE | 2018-06-02 18:58 | UC ---
Respiratory Complaint HPI - HPI Summary HPI Summary: Pt c/o gradual onset productive cough, chest congestion, fever, SOB X5 days. Pt has hx of eosinophilic pneumonia. - History of Current Complaint Chief Complaint: UCRespiratory Stated Complaint: COUGH,CONGESTION Time Seen by Provider: 06/02/18 17:49 Hx Obtained From: Patient Onset/Duration: Gradual Onset, Lasting Days, Still Present, Worse Since - onset Timing: Constant Severity Currently: Severe Pain Intensity: 0 Character: Cough: Nonproductive, Sputum Description: - white, yellow Alleviating Factors: Nothing Associated Signs And Symptoms: Positive: Fever, Chills, Wheezing, URI, Nasal Congestion Related History: Seasonal Allergies - Risk Factors Pulmonary Embolism Risk Factors: Negative Cardiac Risk Factors: Negative Pseudomonas Risk Factors: Chronic Lung Disease Tuberculosis Risk Factors: Negative - Allergies/Home Medications Allergies/Adverse Reactions: Allergies Allergy/AdvReac Type Severity Reaction Status Date / Time environmental Allergy Congestion Uncoded 06/02/18 17:59 Home Medications: Home Medications Aspirin [Adult Low Dose Aspirin EC] 81 mg PO DAILY 06/02/18 [History Confirmed 06/02/18] Ibuprofen [Advil] 400 mg PO SEE INSTRUCTIONS 06/02/18 [History Confirmed ] Montelukast Sodium TAB* [Singulair 10 MG TAB*] 10 mg PO DAILY 06/02/18 [History Confirmed 06/02/18] Simvastatin TAB(NF) [Zocor 10 MG (NF)] 1 dose PO DAILY 06/02/18 [History Confirmed 06/02/18] Zical Allergy Med 1 tab PO DAILY 06/02/18 [History Confirmed 06/02/18] PMH/Surg Hx/FS Hx/Imm Hx Previously Healthy: Yes Respiratory History: Asthma, Pneumonia - Surgical History Surgical History: Yes Surgery Procedure, Year, and Place: lung bx-2004 - Family History Known Family History: Positive: Cardiac Disease - Social History Occupation: Employed Full-time Lives: With Family Alcohol Use: Occasionally Substance Use Type: None Smoking Status (MU): Never Smoked Tobacco Have You Smoked in the Last Year: No Review of Systems Constitutional: Fever, Chills, Fatigue Skin: Negative Eyes: Negative ENT: Other - nasal congestion Respiratory: Shortness Of Breath, Cough Cardiovascular: Negative Gastrointestinal: Negative Genitourinary: Negative Motor: Negative Neurovascular: Negative Musculoskeletal: Negative Neurological: Negative Psychological: Negative Is Patient Immunocompromised?: No All Other Systems Reviewed And Are Negative: Yes Physical Exam Triage Information Reviewed: Yes Appearance: Ill-Appearing Vital Signs: Initial Vital Signs Temp 103.6 F 06/02/18 17:46 Pulse 99 06/02/18 17:46 Resp 24 06/02/18 17:46 BP 153/81 06/02/18 17:46 Pulse Ox 98 06/02/18 17:46 Vital Signs Reviewed: Yes Eye Exam: Normal ENT: Positive: Nasal congestion Dental Exam: Normal Neck exam: Normal Respiratory: Positive: Decreased breath sounds, Wheezing Cardiovascular Exam: Normal Musculoskeletal Exam: Normal Neurological Exam: Normal Psychological Exam: Normal Skin Exam: Normal UC Diagnostic Evaluation - Laboratory O2 Sat by Pulse Oximetry: 98 Diagnostic Studies Comment: IMPRESSION: RETICULONODULAR DENSITIES OVERLYING THE BILATERAL LOWER LUNGS, MORE SEVERELY AFFECTING THE. RIGHT, COULD BE DUE TO MULTIFOCAL PNEUMONIA IN ACUTE SETTING OR EARLY INTERSTITIAL LUNG. DISEASE AND A MORE CHRONIC SETTING. Respiratory Course/Dx - Differential Dx/Diagnosis Differential Diagnosis/HQI/PQRI: Bronchitis, Exacerbation Of COPD Provider Diagnoses: pneumonia Discharge - Sign-Out/Discharge Documenting (check all that apply): Patient Departure All imaging exams completed and their final reports reviewed: Yes - Discharge Plan Condition: Stable Disposition: HOME Prescriptions: Albuterol 2.5MG/3ML (0.083%)* [Ventolin 2.5 MG/3 ML NEB.SANTA*] 2.5 mg INH Q4H PRN #1 box PRN Reason: Sob/Wheezing Amoxicillin/Clavulanate TAB* [Augmentin TAB 875*] 875 mg PO Q12H #20 tab Azithromycin TAB* [Zithromax TAB (Z-FILEMON) 250 mg #6 tabs] 2 tab PO .TODAY, THEN 1 DAILY #1 filemon predniSONE TAB* [Deltasone 20 MG TAB*] 60 mg PO DAILY #20 tab Patient Education Materials: Pneumonia (ED) Referrals: Gaudencio Johns MD [Primary Care Provider] - As Soon As Possible Additional Instructions: Please follow up with your PCP as soon as possible. If your symptoms worsen, please seek care at the closest emergency room immediately. - Billing Disposition and Condition Condition: STABLE Disposition: Home
[2018-06-02 20:03] VITALS: BP 142/73
== END 2018-06-02 19:50 | disposition home or self-care (01) ==
LOC: UCCORT 17:34
DX: J18.9 Pneumonia, unspecified organism (principal)
CPT/HCPCS: 71046; 96372; 99203; A9270-GY; G0463; J0696; J7512